=== PATIENT | female | born 1995 | race Caucasian/White ===

== ENCOUNTER 2022-11-22 03:34 | Emergency (ER) | payer OTHER, SELFPAY ==
[2022-11-22 03:46] VITALS: BP 167/96; PULSE 88; RESP 18; TEMP 36.2; O2SAT 100; BMI 32.6
--- NOTE | 2022-11-22 04:07 | ED.BACK ---
HPI - Back Pain/Injury General Chief Complaint: Back Pain/Injury Stated Complaint: severe back pain Time Seen by Provider: 11/22/22 04:06 History of Present Illness HPI Narrative: Patient is a healthy 27 old female who presents with left-sided back pain. He says it started [employer] year[employer] day camp came out of no where. It has been off and on. She initially was seen at a walk-in clinic where they gave her pain pills and muscle relaxers. She says it has not gone completely away. She is been trying to stay active she went non hike today she said it was not too bad or intense however tonight she is unable to get to sleep. She has pain radiating down into her left leg. No loss of urine or bowel. No fevers. She is not diabetic. She just moved to the area she is trying to establish with a PCP but does not have an appointment until July. She took Excedrin prior to her arrival here but still having quite a bit pain Related Data Previous Rx's Medication Instructions Recorded cyclobenzaprine 10 mg tablet 10 mg PO TID PRN muscle spasm #10 11/22/22 tabs hydrocodone 5 mg-acetaminophen 325 1 tab PO Q6H PRN pain #10 tabs 11/22/22 mg tablet Allergies Allergy/AdvReac Type Severity Reaction Status Date / Time No Known Drug Allergies Allergy Verified 11/22/22 03:54 Review of Systems Review of Systems ROS Unobtainable: All systems reviewed & are unremarkable except as noted in HPI and below Patient History Social History Smoking Status: Never smoker Smoking Status: Never smoker alcohol intake frequency: holidays/special occasions only Substance Use Type: does not use Exam Initial Vital Signs Initial Vital Signs: Vital Signs Temperature 97.1 F L 11/22/22 03:46 Pulse Rate 88 11/22/22 03:46 Respiratory Rate 18 11/22/22 03:46 Blood Pressure 167/96 H 11/22/22 03:46 Pulse Oximetry 100 11/22/22 03:46 Oxygen Delivery Method 11/22/22 03:46 GENERAL: Alert pleasant 27-year-old female and in no acute distress. HEENT: Head atraumatic,EOMI, pupils reactive, face symmetric, moist mucous membranes CARDIOVASCULAR: Regular rate and rhythm without murmurs, rubs or gallops. RESPIRATORY: Breath sounds equal bilaterally, no wheezes rales or rhonchi. BACK: No vertebral tenderness no step-off EXTREMITIES: Normal range of motion, no clubbing or edema. Neurovascularly intact NEUROLOGICAL: Alert and oriented x4. SKIN: Warm, dry, no laceration, no petechiae, no rashes or lesions. Course Orders Ordered: Discontinued Medications Hydrocodone Bitart/Acetaminophen (Hydrocodone/Acet 5/325 Prepack) 1 bottle MISC SEEINSTR ONE Stop: 11/22/22 04:07 Last Admin: 11/22/22 04:21 Dose: 1 bottle Cyclobenzaprine HCl (Cyclobenzaprine 10 Mg Prepack) 1 bottle MISC SEEINSTR ONE Stop: 11/22/22 04:07 Last Admin: 11/22/22 04:21 Dose: 1 bottle Ketorolac Tromethamine (Ketorolac 30 Mg/Ml Vial) 30 mg IM NOW ONE Stop: 11/22/22 04:07 Last Admin: 11/22/22 04:20 Dose: 30 mg Vital Signs Vital signs: Vital Signs - 8 hr 11/22/22 03:46 Temperature 97.1 F L Pulse Rate 88 Respiratory Rate 18 Blood Pressure 167/96 H Pulse Oximetry 100 Oxygen Delivery Method Room Air MDM - Back Pain/Injury MDM Narrative Medical decision making narrative: The patient 27-year-old female presenting with acute on chronic back pain radiating down her left leg consistent with sciatica. No sign of cauda equina epidural abscess or other red flag symptoms. Encourage her to look for other PCPs and also alternatives such as acupuncture chiropractor work and massage. She is given shot of Toradol here. I am happy to give her a prepack of medications so she can go home and get sleep. She is quite tearful.. She sounds as though she is trying to do things by staying active stretching heating pad she tried to pillow between her legs. At this time no indication for emergent MRI or other workup. She denies any trauma. Discharge Plan Departure Patient Disposition: Home Clinical Impression: Acute back pain with sciatica Activity Restrictions/Additional Instructions: *You have been diagnosed with back pain with sciatica *What to do: At this time continue heating pad stretching consider alternatives such as acupuncture chiropractor and massage. Continue light activity no strenuous activity heavy lifting. *Continue to take medications as directed--> SENT TO [facility] [place] Motrin 600 mg every 6 hours if needed for [id number] pain [place] 1 tablet every 6 hours if needed for severe pain Cyclobenzaprine 5-10 mg every 8 hours if needed for muscle spasm. This can cause drowsiness and dizziness *Follow up with your primary care provider in 2-3 days or call [phone] *Return to ER if you should have increasing pain leg weakness loss of urine increasing numbness or any new, worsening or concerning symptoms CONTROLLED SUBSTANCE DISCHARGE (Narcotoic/benzodiazepine/Flexeril/Phenergan) 1. You have been prescribed narcotic medications, it does have acetaminophen/Tylenol/paracetamol in it, DO NOT TAKE MORE THAN 4,00mg in 24 hours of Tylenol. TRAMADOL DOES NOT CONTAIN TYLENOL 2. Please understand that we cannot provide further refills of narcotics, benzodiazepines or controlled substances through the ED and her pain management will need to be through your provider. 3. While on these medications you cannot drive or operate heavy machinery. 4. You cannot sign legal documents or perform any duties such as this. 5. As long as you're taking opiate pain medications he should also be taking a stool softener such as Colace, Dulcolax, MiraLAX or prune juice, to help avoid constipation. Prescriptions: New cyclobenzaprine 10 mg tablet 10 mg PO TID PRN (Reason: muscle spasm) Qty: 10 0RF hydrocodone-acetaminophen 5-325 mg tablet 1 tab PO Q6H PRN (Reason: pain) Qty: 10 0RF Stand Alone Forms: Patient Portal/API
[2022-11-22] MEDS: KETOROLAC 30 MG/ML VIAL IM (04:20)
[2022-11-22] MEDS: HYDROCODONE/ACET 5/325 PREPACK 1 BOTTLE MISC (04:21)
[2022-11-22] MEDS: CYCLOBENZAPRINE 10 MG PREPACK 1 BOTTLE MISC (04:21)
[2022-11-22 04:24] VITALS: BP 154/82; PULSE 78; RESP 16; TEMP 36.1; O2SAT 100
== END 2022-11-22 04:25 | disposition home or self-care (01) ==
PROVIDERS: Emergency Provider Emergency Medicine
DX: M54.42 Lumbago with sciatica, left side (principal)
CPT/HCPCS: 96372; 99283; J1885

== ENCOUNTER → 2025-04-18 08:47 | Outpatient (CLI) | payer OTHER, SELFPAY ==
[2025-04-18 09:38] LABS: Alanine Aminotransferase 15 IU/L (<35); Albumin 4.5 g/dL (3.5-5.0); Albumin Globulin Ratio 1.8 (1.0-2.8); Alkaline Phosphatase 44 U/L (38-126); Aspartate Aminotransferase 22 IU/L (14-36); BUN Creatinine Ratio 13.1 (6-22); Bilirubin Total 0.7 mg/dL (0.2-1.3); Blood Urea Nitrogen 8 mg/dL (7-17); Calcium 9.3 mg/dL (8.4-10.2); Carbon Dioxide 23 mmol/L (22-32); Chloride 106 mmol/L (98-107); Cholesterol 161 mg/dL (140-199); Estimated Glomerular Filt Rate > 60 mL/min (>60); Globulin 2.5 g/dL (1.7-4.1); Glucose 84 mg/dL (70-99); HDL Cholesterol 65 mg/dL (40-60); HEMOLYSIS < 15 (0-50); LDL Cholesterol Calculated 75 mg/dL (<100); Potassium 4.4 mmol/L (3.4-5.1); Sodium 137 mmol/L (137-145); Triglycerides 107 mg/dL (35-150)
[2025-04-18 09:42] LABS: Hemoglobin A1C% w Est Avg Glu 4.9 % (4.0-6.0)
[2025-04-19 03:39] LABS: CRP, High Sensitivity 1.45 mg/L (0.00-3.00)
== END ==
PROVIDERS: PCP Family Medicine; Referring Provider Family Medicine; Visit Provider Family Medicine
DX: Z30.9 Encounter for contraceptive management, unspecified (principal); E66.9 Obesity, unspecified; G43.909 Migraine, unspecified, not intractable, without status migrainosus; E88.810 Metabolic syndrome
CPT/HCPCS: 36415; 80053; 80061; 83036; 86140